=== PATIENT | female | born 1940 | race Caucasian/White ===

== ENCOUNTER 2018-10-26 10:25 | Observation (INO) | payer MEDICARE ==
[~2018-10-26] VITALS: Ht 160 cm; Wt 75.4 kg
--- NOTE | 2018-10-26 10:30 | NUR ---
PT TO ROOM VIA WHEELCHAIR.
[2018-10-26 11:27] LABS: URINE BILIRUBIN - DIPSTICK NEGATIVE (NEGATIVE); URINE BLOOD DIPSTICK NEGATIVE (NEGATIVE); URINE COLOR YELLOW; URINE GLUCOSE - DIPSTICK 100 mg/dL (NEGATIVE); URINE KETONE NEGATIVE (NEGATIVE); URINE LEUK ESTERASE TRACE (NEGATIVE); URINE NITRITE - DIPSTICK NEGATIVE (Negative); URINE PROTEIN - DIPSTICK NEGATIVE (NEG-TRACE); URINE SPECIFIC GRAVITY <=1.005; URINE UROBILINOGEN - DIPSTICK 0.2 E.U./dL (0.2)
[2018-10-26 11:36] LABS: HEMATOCRIT 42.3 % (37.0-47.0); HEMOGLOBIN 14.2 g/dl (12.0-16.0); IMMATURE GRANULOCYTES 0.4 % (0.0-5.0); MEAN CELL VOLUME 98.1 fL CALC (80.0-100.0); MEAN CORPUSCULAR HGB 32.9 pG CALC (26.0-32.0); MEAN CORPUSCULAR HGB CONC 33.6 g/L CALC (32.0-36.0); NEUT# 6.43 thou/uL (2.00-7.15); RED BLOOD COUNT 4.31 mill/uL (4.20-5.60); RED CELL DISTRI WIDTH 13.7 % (11.5-15.5)
--- NOTE | 2018-10-26 12:15 | NUR ---
PT WITH BLOOD DRAWN, IV ESTABLISHED, WAITS IN ROOM FOR RESULTS.
[2018-10-26 12:31] LABS: ALBUMIN 4.2 g/dL (3.2-5.0); ALKALINE PHOSPHATASE 77 u/l (38-126); ANION GAP 10 (6-22 (CALC)); BILIRUBIN, TOTAL 0.5 mg/dL (0.0-1.4); BUN 10 mg/dL (8-23); BUN/CREATININE RATIO 13 (12-20 (CALC)); CARBON DIOXIDE 31 mmol/l (22-30); CHLORIDE 106 mmol/l (95-108); CREATININE 0.7 mg/dL (0.5-1.0); GFR > 60 ML/MIN (>=60 (CALC)); GFR FOR AFR.AMER. > 60 ML/MIN (>=60 (CALC)); POTASSIUM 4.2 mmol/l (3.5-5.1); SGOT/AST 21 u/l (9-36); SODIUM 143 mmol/l (137-146); TOTAL PROTEIN 7.1 g/dL (6.3-8.2)
[2018-10-26 12:41] LABS: MYOGLOBIN 28 ng/mL (0 - 62)
--- NOTE | 2018-10-26 13:56 | NUR ---
PT AWARE OF PENDING ADMISSION, TELE MONITOR IN PLACE.
[2018-10-26] MEDS ORDERED: LEVOTHYROXIN100 MC1 PO (14:05)
[2018-10-26] MEDS ORDERED: METOPROLOL SUCC50 MG PO (14:06)
[2018-10-26] MEDS ORDERED: LISINOPRIL10 M1 PO (14:07)
[2018-10-26] MEDS ORDERED: SIMVASTATIN20 MG PO (14:07)
[2018-10-26] MEDS ORDERED: EC ASPIRIN325 MG PO (14:07)
[2018-10-26] MEDS ORDERED: VITAMIN B-12500 MCG PO (14:08)
[2018-10-26 14:20] VITALS: BP 138/59
--- NOTE | 2018-10-26 14:20 | NUR ---
PT ADMITTED TO ROOM 262 FROM ED VIA STRETCHER FOR WEAKNESS. PT TRANFERRED SELF FROM STRETCHER TO BED WITH SLOW STEADY GAIT. PT A&OX3 ABLE TO MAKE NEEDS KNOWN. PT DENIES SOB, CHEST PAIN OR DISTRESS AT THIS TIME. ASSESSMENT COMPLETED. T-96.3, HR- 56, B/P-138/59, SA02@100%RA, RESP.EVEN/UNLABORED, LS CLEAR THROUGHOUT. ABDOMEN DISTENDED, SOFT, NON-TENDER. REPORTS LAST BM 10-26-18. PT CONTINUES WITH 22 LH/SL FLUSHED WITHOUT DIFFICULTY, NO S/S OF REDNESS OR INFILTRATION AT THIS TIME. PT ORIENTED TO UNIT, ROOM AND CALL LIGHT SYSTEM. WILL MONITOR.
--- NOTE | 2018-10-26 14:29 | NUR ---
PT TAKEN TO ROOM 262 WITHOUT INCIDENT, REPORT WAS TO CHRIS.
--- NOTE | 2018-10-26 15:00 | NUR ---
PT SON AT BEDSIDE.
--- NOTE | 2018-10-26 15:16 | NUR ---
SNACK PROVIDED PER PT REQUEST.
--- NOTE | 2018-10-26 16:11 | NUR ---
PT RESTING IN BED WITH EYES CLOSED, OFFERS NO COMPLAINTS AT THIS TIME. CALL LIGHT IN REACH. WILL MONITOR.
[2018-10-26 19:40] VITALS: BP 102/62
--- NOTE | 2018-10-26 19:40 | NUR ---
PT RESTING IN BED, NO SIGNS OF DISTRESS NOTED, RESP EVEN AND UNLABORED. PT ALERT AND ORIENTED X3, DISCUSSED POC. IVF INFUSING, ASSESSMENT COMPLETED. CALL LIGHT IN REACH,CONTINUE TO MONITOR.
--- NOTE | 2018-10-26 21:27 | NUR ---
PT RESTING IN BED, DISCUSSED CLONIDINE, HELD DUE TO LOW BP AND HR, PT VERBALIZED UNDERSTANDING. STATES,"I DO NOT WANT TO TAKE SOMETHING THAT WILL LOWER MY BLOOD PRESSURE EVEN MORE." CALL LIGHT IN REACH,CONTINUE TO MONITOR.
[2018-10-27] VITALS (10 sets, daily range): BP systolic 99–151; BP diastolic 51–80
--- NOTE | 2018-10-27 | NUR ---
PT RESTING IN BED, NO SIGNS OF DISTRESS NOTED, RESP EVEN AND UNLABORED. CALL LIGHT IN REACH,CONTINUE TO MONITOR.
[2018-10-27 05:11] LABS: HEMATOCRIT 39.9 % (37.0-47.0); IMMATURE GRANULOCYTES 0.3 % (0.0-5.0); MEAN CELL VOLUME 100.3 fL CALC (80.0-100.0); MEAN CORPUSCULAR HGB 32.7 pG CALC (26.0-32.0); MEAN CORPUSCULAR HGB CONC 32.6 g/L CALC (32.0-36.0); NEUT# 4.58 thou/uL (2.00-7.15); RED BLOOD COUNT 3.98 mill/uL (4.20-5.60); RED CELL DISTRI WIDTH 13.6 % (11.5-15.5)
[2018-10-27 05:36] LABS: ALBUMIN 3.4 g/dL (3.2-5.0); ALKALINE PHOSPHATASE 61 u/l (38-126); ANION GAP 9 (6-22 (CALC)); BILIRUBIN, TOTAL 0.4 mg/dL (0.0-1.4); BUN 10 mg/dL (8-23); BUN/CREATININE RATIO 14 (12-20 (CALC)); CARBON DIOXIDE 28 mmol/l (22-30); CHLORIDE 108 mmol/l (95-108); CREATININE 0.7 mg/dL (0.5-1.0); GFR > 60 ML/MIN (>=60 (CALC)); GFR FOR AFR.AMER. > 60 ML/MIN (>=60 (CALC)); SGOT/AST 20 u/l (9-36); SODIUM 142 mmol/l (137-146); TOTAL PROTEIN 6.1 g/dL (6.3-8.2)
[2018-10-27 06:20] LABS: CHOLESTEROL HDL RATIO 3.1 (<4.4 (CALC))
[2018-10-27 06:51] LABS: TSH, 3RD GENERATION 5.98 uIU/mL (0.47 - 4.68)
--- NOTE | 2018-10-27 08:15 | NUR ---
PT SITTING IN CHAIR; SON IN ROOM TO VISIT; DENIES PAIN OR DISCOMFORT; IVF INFUSING WITHOUT DIFFICULTY IN #22 LH, NO REDNESS OR EDEMA NOTED; TELE MONITOR IN PLACE; PT C/O DIZZINESS AT TIMES, INSTRUCTED PT NOT TO GET OOB WITHOUT ASSISTANCE; PT VERBALIZE UNDERSTANDING OF SAME; CALL LEA WITHIN REACH; WILL CONTINUE TO MONITOR.
--- NOTE | 2018-10-27 08:47 | NUR ---
DR. OLVERA IN TO SEE PT; PLAN OF CARE DISCUSSED;
--- NOTE | 2018-10-27 10:00 | NUR ---
PT SITTING IN CHAIR; REQUESTING PRUNE JUICE; NO COMPLAINTS OR CONCERNS VOICED; IVF STOPPED PER MD ORDER; CALL LEA WITHIN REACH; WILL CONTINUE TO MONITOR.
--- NOTE | 2018-10-27 10:35 | NUR ---
REPORT RECEIVED FROM CEFERINO WARE AWAKE ALERT AND ORIENTED SITTING UP IN CHAIR, NO C/O DISCOMFORT, FAMILY VISITING AT THIS TIME, ALL NEEDS ADDRESSED, CALL LEA IN REACH.
--- NOTE | 2018-10-27 16:00 | NUR ---
RESTING IN BED, NO C/O DISCOMFORT, ORTHOSTATIC BP'S MEASURED AND RECORDED REQUESTED BY BROOKE (TRACK SURFACING MACHINE OPERATOR), ALL NEEDS ADDRESSED.
--- NOTE | 2018-10-27 17:06 | NUR ---
DR OLVERA ROUNDED AND DISCUSSED PLAN OF CARE TO D/C HOME IN AM, PT WANTED TO LEAVE TODAY BUT ADDITIONAL OBSERVATION NEEDED.
--- NOTE | 2018-10-27 19:32 | NUR ---
ASSESSMENT COMPLETED. IV SITE PATENT AND SL. DENIES NEEDS/PAIN. UPDATED ON POC.VOICES CONCERNS. ENCOURAGED TO CALL FOR ANY NEEDS. CALL LIGHT IS IN REACH.
--- NOTE | 2018-10-27 21:04 | NUR ---
SCHED MED GIVEN. CLONIDINE HELD D/T B/P. DENIES NEEDS AT THIS TIME. CALL LIGHT IS IN REACH. WILL CONTINUE TO MONITOR.
--- NOTE | 2018-10-27 22:04 | NUR ---
PT. REQUESTS SOMETHING TO HELP HER SLEEP. MEDICATED WITH ORDERED PRN RESTORIL; DENIES FURTHER NEEDS. CALL LIGHT IS IN REACH.
--- NOTE | 2018-10-27 23:37 | NUR ---
PT. AWAKENED FOR VS. B/P 151/80 AND MEDICATED WITH ORDERED PRN PO APRESOLINE; DENIES NEEDS/PAIN. CALL LIGHT IS IN REACH.
--- NOTE | 2018-10-28 04:00 | NUR ---
RESTING IN BED WITH EYES CLOSED; RESP. EVEN AND UNLABORED. CALL LIGHT IS IN REACH.
[2018-10-28 04:55] VITALS: BP 125/56
--- NOTE | 2018-10-28 05:31 | NUR ---
PT. DENIES NEEDS/PAIN. SCHED MED GIVEN.ENCOURAGED TO CALL FOR ANY NEEDS. CALL LIGHT IS IN REACH. CLONIDINE HELD DUE TO B/P. WILL CONTINUE TO MONITOR.
--- NOTE | 2018-10-28 08:00 | NUR ---
PT IS SITTING IN CHAIR. ASSESSMENT DONE. TELE IN PLACE. PT DENIES PAIN AT THIS TIME. PT IS A&O X3. RESPS EVEN AND UNLABORED. PT WAITING TO BE D/C TODAY. PT DENIES ANY OTHER NEEDS AT THIS TIME. CALL LIGHT IN REACH.
[2018-10-28 08:07] VITALS: BP 121/64
[2018-10-28 11:04] VITALS: BP 149/51
--- NOTE | 2018-10-28 12:11 | NUR ---
ASSISTED PT TO THE BATHROOM. PT DENIES ANY OTHER NEEDS AT THIS TIME. CALL LIGHT IN REACH.
[2018-10-28 14:20] VITALS: BP 168/78
--- NOTE | 2018-10-28 15:10 | NUR ---
Discharge instructions given. Patient verbalizes understanding of same. Discharged in stable condition via Wheelchair to Home with staff. All belongings sent with pt.
[2018-10-28 16:17] VITALS: BP 151/78
== END 2018-10-28 15:10 | disposition home or self-care (01) ==
LOC: ED 10:25 → ED-I 12:57 → ED 13:33 → MS2 13:34
PROVIDERS: Emergency Medicine; ADMIT Internal Medicine Geriatric Medicine; ATTEND Internal Medicine Geriatric Medicine
DX: I10 Essential (primary) hypertension (principal); F41.1 Generalized anxiety disorder; I25.10 Atherosclerotic heart disease of native coronary artery without angina pectoris; E03.9 Hypothyroidism, unspecified; M54.16 Radiculopathy, lumbar region

== ENCOUNTER 2018-11-01 09:37 | Emergency (ER) | payer MEDICARE ==
[~2018-11-01] VITALS: Ht 160 cm; Wt 80.0 kg
[~2018-11-01 09:37] MED LIST: EC ASPIRIN325 MG PO; LEVOTHYROXIN100 MC1 PO; LISINOPRIL10 M1 PO; METOPROLOL SUCC50 MG PO; SIMVASTATIN20 MG PO; VITAMIN B-12500 MCG PO
[2018-11-01 12:40] VITALS: BP 132/68
== END 2018-11-01 12:40 | disposition home or self-care (01) ==
LOC: ED 09:37
DX: I80.9 Phlebitis and thrombophlebitis of unspecified site (principal); I10 Essential (primary) hypertension

== ENCOUNTER 2019-06-06 06:29 | Observation (INO) | payer MEDICARE ==
[~2019-06-06] VITALS: Ht 160 cm; Wt 72.7 kg
[2019-06-06 07:16] LABS: HEMATOCRIT 44.9 % (37.0-47.0); HEMOGLOBIN 14.7 g/dl (12.0-16.0); IMMATURE GRANULOCYTES 0.5 % (0.0-5.0); MEAN CELL VOLUME 98.9 fL CALC (80.0-100.0); MEAN CORPUSCULAR HGB 32.4 pG CALC (26.0-32.0); MEAN CORPUSCULAR HGB CONC 32.7 g/dL CAL (32.0-36.0); NEUT# 9.17 thou/uL (2.00-7.15); RED BLOOD COUNT 4.54 mill/uL (4.20-5.60)
[2019-06-06 07:54] LABS: ALKALINE PHOSPHATASE 66 u/l (38-126); ANION GAP 10 (6-22 (CALC)); BILIRUBIN, TOTAL 0.5 mg/dL (0.0-1.4); BUN 17 mg/dL (8-23); BUN/CREATININE RATIO 21 (12-20 (CALC)); CARBON DIOXIDE 30 mmol/l (22-30); CHLORIDE 104 mmol/l (95-108); CREATININE 0.8 mg/dL (0.5-1.0); GFR > 60 ML/MIN (>=60 (CALC)); GFR FOR AFR.AMER. > 60 ML/MIN (>=60 (CALC)); POTASSIUM 3.7 mmol/l (3.5-5.1); SGOT/AST 26 u/l (9-36); SODIUM 141 mmol/l (137-146); TOTAL PROTEIN 7.2 g/dL (6.3-8.2)
[2019-06-06 08:06] LABS: MYOGLOBIN 35 ng/mL (0 - 62)
[2019-06-06 08:19] LABS: URINE BILIRUBIN - DIPSTICK NEGATIVE (NEGATIVE); URINE BLOOD DIPSTICK NEGATIVE (NEGATIVE); URINE COLOR YELLOW; URINE GLUCOSE - DIPSTICK NEGATIVE (NEGATIVE); URINE KETONE NEGATIVE (NEGATIVE); URINE LEUK ESTERASE NEGATIVE (NEGATIVE); URINE NITRITE - DIPSTICK NEGATIVE (Negative); URINE PH 6.5 (4.5-8.0); URINE PROTEIN - DIPSTICK NEGATIVE (NEG-TRACE); URINE SPECIFIC GRAVITY 1.015; URINE UROBILINOGEN - DIPSTICK 0.2 E.U./dL (0.2)
[2019-06-06 10:15] VITALS: BP 136/59
[2019-06-06 15:24] VITALS: BP 110/55
[2019-06-06 20:05] VITALS: BP 128/56
[2019-06-06 23:30] VITALS: BP 156/75
[2019-06-07 03:10] VITALS: BP 149/72
[2019-06-07 04:52] LABS: HEMATOCRIT 39.6 % (37.0-47.0); HEMOGLOBIN 12.8 g/dl (12.0-16.0); MEAN CELL VOLUME 99.5 fL CALC (80.0-100.0); MEAN CORPUSCULAR HGB 32.2 pG CALC (26.0-32.0); MEAN CORPUSCULAR HGB CONC 32.3 g/dL CAL (32.0-36.0); RED BLOOD COUNT 3.98 mill/uL (4.20-5.60)
[2019-06-07 05:08] LABS: ANION GAP 7 (6-22 (CALC)); BUN 16 mg/dL (8-23); BUN/CREATININE RATIO 21 (12-20 (CALC)); CARBON DIOXIDE 30 mmol/l (22-30); CHLORIDE 107 mmol/l (95-108); CREATININE 0.8 mg/dL (0.5-1.0); GFR > 60 ML/MIN (>=60 (CALC)); GFR FOR AFR.AMER. > 60 ML/MIN (>=60 (CALC)); MAGNESIUM 1.9 mg/dL (1.6-2.3); POTASSIUM 3.8 mmol/l (3.5-5.1); SODIUM 140 mmol/l (137-146)
[2019-06-07 10:10] VITALS: BP 161/58
[2019-06-07 12:13] VITALS: BP 163/77
== END 2019-06-07 14:51 | disposition home or self-care (01) ==
LOC: ED 06:29 → ED-I 09:06 → ED 09:18 → ED-I 09:19 → MS2 09:19
PROVIDERS: Family Medicine; Nurse Practitioner Family; ADMIT Internal Medicine; ATTEND Internal Medicine
DX: I95.2 Hypotension due to drugs (principal); T46.5X5A Adverse effect of other antihypertensive drugs, initial encounter; R00.1 Bradycardia, unspecified; I10 Essential (primary) hypertension; E03.9 Hypothyroidism, unspecified; G62.9 Polyneuropathy, unspecified; E78.5 Hyperlipidemia, unspecified; Z87.891 Personal history of nicotine dependence
CPT/HCPCS: G0378

== ENCOUNTER 2020-06-09 | Emergency (ER) | payer MEDICARE ==
[2020-06-09] MEDS ORDERED: FLOXIN OTIC0.3 % AD (07:45)
[2020-06-09] MEDS ORDERED: ZPAK PO (07:45)
[2020-06-09] MEDS ORDERED: MEDDOSEPAK PO (07:45)
== END 2020-06-09 07:52 | disposition home or self-care (01) ==
DX: B00.9 Herpesviral infection, unspecified (principal); H66.91 Otitis media, unspecified, right ear; T78.40XA Allergy, unspecified, initial encounter; I10 Essential (primary) hypertension; G62.9 Polyneuropathy, unspecified; X58.XXXA Exposure to other specified factors, initial encounter

== ENCOUNTER 2020-08-07 21:42 | Emergency (ER) | payer MEDICARE ==
[~2020-08-07] VITALS: Ht 160 cm; Wt 67.2 kg
[~2020-08-07 21:42] MED LIST changes: +FLOXIN OTIC0.3 % AD; +MEDDOSEPAK PO; +ZPAK PO
[2020-08-07 21:45] VITALS: BP 162/69
== END 2020-08-07 22:30 | disposition left against medical advice (07) ==
LOC: ED 21:42
DX: S00.83XA Contusion of other part of head, initial encounter (principal); S16.1XXA Strain of muscle, fascia and tendon at neck level, initial encounter; S00.31XA Abrasion of nose, initial encounter; S00.33XA Contusion of nose, initial encounter; M25.561 Pain in right knee; I10 Essential (primary) hypertension; G62.9 Polyneuropathy, unspecified; W01.0XXA Fall on same level from slipping, tripping and stumbling without subsequent striking against object, initial encounter; Y92.007 Garden or yard of unspecified non-institutional (private) residence as the place of occurrence of the external cause; Z91.19 Patient's noncompliance with other medical treatment and regimen

== ENCOUNTER 2021-09-13 11:57 | Observation (INO) | payer MEDICARE ==
[~2021-09-13] VITALS: Ht 160 cm; Wt 70.0 kg
--- NOTE | 2021-09-13 12:05 | NUR ---
PATIENT TO ROOM VIA WHEELCHAIR, EKG OBTAINED.
[2021-09-13] MEDS ORDERED: NIFEDIPINE10 M1 PO (12:08)
[2021-09-13] MEDS ORDERED: ASPIRIN81 MG PO (12:08)
[2021-09-13] MEDS ORDERED: CILOSTAZOL50 MG PO (12:09)
[2021-09-13] MEDS ORDERED: MULTI VIT PO (12:09)
[2021-09-13 12:16] LABS: HEMATOCRIT 45.6 % (37.0-47.0); HEMOGLOBIN 14.5 g/dl (12.0-16.0); MEAN CELL VOLUME 102.2 fL CALC (80.0-100.0); MEAN CORPUSCULAR HGB 32.5 pG CALC (26.0-32.0); MEAN CORPUSCULAR HGB CONC 31.8 g/dL CAL (32.0-36.0); NEUT# 5.04 thou/uL (2.00-7.15); RED BLOOD COUNT 4.46 mill/uL (4.20-5.60); RED CELL DISTRI WIDTH 13.4 % (11.5-15.5)
[2021-09-13 12:30] LABS: ALBUMIN 4.4 g/dL (3.2-5.0); ALKALINE PHOSPHATASE 95 u/l (38-126); BILIRUBIN, TOTAL 0.4 mg/dL (0.0-1.4); BUN 11 mg/dL (8-23); BUN/CREATININE RATIO 13 (12-20 (CALC)); CHLORIDE 104 mmol/l (95-108); CREATININE 0.8 mg/dL (0.5-1.0); GFR FOR AFR.AMER. > 60 ML/MIN (>=60 (CALC)); GFR OTHER RACES > 60 ML/MIN (>=60 (CALC)); POTASSIUM 3.8 mmol/l (3.5-5.1); SGOT/AST 27 u/l (9-36); SODIUM 138 mmol/l (137-146); TOTAL PROTEIN 7.9 g/dL (6.3-8.2)
[2021-09-13 12:38] LABS: ANION GAP 15 (6-22 (CALC)); CARBON DIOXIDE 23 mmol/l (22-30)
--- NOTE | 2021-09-13 13:00 | NUR ---
Reassessment of patient completed. No distress noted.
--- NOTE | 2021-09-13 14:00 | NUR ---
Reassessment of patient completed. No distress noted.
[2021-09-13] MEDS ORDERED: PLAVIX75 MG PO (14:09)
--- NOTE | 2021-09-13 14:20 | NUR ---
PT BROUGHT TO MED SURG 278. REPORT GIVEN AT [facility] TO HUMANITIES AND LANGUAGES PROFESSOR
--- NOTE | 2021-09-13 14:28 | NUR ---
RECEIVED PATIENT FROM ED VIA @ [id number]. YAMILKA REPORT RECEIVED FROM ED RN. PATIENT IS A&OX4. PATIENT ADMITED FOR OBSERVATION. PATIENT IS IN ROOM AIR. PATIENT IS ABLE TO MAKE NEEDS KNOWN AND DENIES ANY DISCOMFORT OR PAIN AT THIS TIME. PATIENT IN RESTING IN BED IN HIGH SEMI-FOWLERS POSITION. PATIENT ORIENTED TO ROOM, BED IN LOWEST POSITION. CALL LIGHT AND BEDSIDE TABLE IN LOWEST POSITION.
[2021-09-13 15:20] VITALS: BP 143/71
[2021-09-13 19:21] VITALS: BP 128/55
--- NOTE | 2021-09-13 19:39 | NUR ---
PATIENT AOX3. NO DISTRESS NOTED. PATIENT SITTING UP IN BED READING. NO COMPLAINTS AT THIS TIME. CALL LEA WITHIN REACH. FALL PRECAUTIONS IN PLACE.
[2021-09-14 00:20] VITALS: BP 120/62
[2021-09-14 04:39] VITALS: BP 118/62
[2021-09-14 05:20] LABS: HEMOGLOBIN 12.7 g/dl (12.0-16.0); MEAN CELL VOLUME 99.5 fL CALC (80.0-100.0); MEAN CORPUSCULAR HGB 33.2 pG CALC (26.0-32.0); MEAN CORPUSCULAR HGB CONC 33.3 g/dL CAL (32.0-36.0); RED BLOOD COUNT 3.83 mill/uL (4.20-5.60); RED CELL DISTRI WIDTH 13.4 % (11.5-15.5)
[2021-09-14 05:34] LABS: HEMATOCRIT 38.1 % (37.0-47.0)
[2021-09-14 05:40] LABS: BUN 10 mg/dL (8-23); BUN/CREATININE RATIO 13 (12-20 (CALC)); CALCULATED LDLCHOLESTEROL 67 mg/dL (62-129 (CALC)); CHLORIDE 107 mmol/l (95-108); CHOLESTEROL HDL RATIO 2.8 (<4.4 (CALC)); CREATININE 0.8 mg/dL (0.5-1.0); GFR FOR AFR.AMER. > 60 ML/MIN (>=60 (CALC)); GFR OTHER RACES > 60 ML/MIN (>=60 (CALC)); HDL CHOLESTEROL 49 mg/dL (>=40); MAGNESIUM 2.1 mg/dL (1.6-2.3); SODIUM 139 mmol/l (137-146); TOTAL CHOLESTEROL 136 mg/dl (0-199); TOTAL TRIGLYCERIDES 99 mg/dl (30-149); VLDL CHOLESTROL 20 mg/dl (0-48 (CALC))
[2021-09-14 05:44] LABS: ANION GAP 8 (6-22 (CALC)); CARBON DIOXIDE 28 mmol/l (22-30)
[2021-09-14 06:41] VITALS: BP 103/53
--- NOTE | 2021-09-14 08:00 | NUR ---
GOT REPORT FROM CIGAR PACKING EXAMINER NURSE. PATIENT ASSESSED. AOX3. PATIENT EATING BREAKFAST AT THIS TIME. NO COMPLAINTS. STATES SHE FEELS LIKE SHE HAS INDIGESTION. MEDICATION GIVEN. CALL LIGHT AND BEDSIDE TABLE WITHIN REACH. ADVISED TO CALL IF SHE NEEDS ANYTHING. PATIENT VERBALIZED UNDERSTANDING.
[2021-09-14 10:10] VITALS: BP 133/64
[2021-09-14] MEDS ORDERED: PROTONIX40 M2 PO (11:55)
[2021-09-14] MEDS ORDERED: MECLIZINE25 MG PO (13:04)
--- NOTE | 2021-09-14 13:05 | NUR ---
Discharge instructions given. Patient verbalizes understanding of same. Discharged in stable condition via Wheelchair to Home with *Other. All belongings sent with pt.
== END 2021-09-14 13:05 | disposition home or self-care (01) ==
LOC: ED 11:57 → ED-I 13:25 → ED 13:46 → MS2 13:47
PROVIDERS: Family Medicine; ADMIT Hospitalist; ATTEND Hospitalist
DX: R07.89 Other chest pain (principal); K21.9 Gastro-esophageal reflux disease without esophagitis; I10 Essential (primary) hypertension; E78.5 Hyperlipidemia, unspecified; I70.213 Atherosclerosis of native arteries of extremities with intermittent claudication, bilateral legs; E03.9 Hypothyroidism, unspecified; J30.2 Other seasonal allergic rhinitis; G62.9 Polyneuropathy, unspecified; Z86.718 Personal history of other venous thrombosis and embolism; Z95.820 Peripheral vascular angioplasty status with implants and grafts; Z87.891 Personal history of nicotine dependence; Z20.822 Contact with and (suspected) exposure to COVID-19
CPT/HCPCS: J1650

== ENCOUNTER 2022-07-02 01:35 | Emergency (ER) | payer MEDICARE ==
[~2022-07-02] VITALS: Ht 160 cm; Wt 68.0 kg
[~2022-07-02 01:35] MED LIST changes: +ASPIRIN81 MG PO; +CILOSTAZOL50 MG PO; +MECLIZINE25 MG PO; +MULTI VIT PO; +NIFEDIPINE10 M1 PO; +PLAVIX75 MG PO; +PROTONIX40 M2 PO
[2022-07-02 01:40] VITALS: BP 160/83
[2022-07-02 01:45] VITALS: BP 148/76
[2022-07-02 02:00] VITALS: BP 127/65
[2022-07-02 02:19] LABS: BASO% 0.3 % (0-3); EOS% 2.6 % (0-8); HEMOGLOBIN 14.3 g/dl (12.0-16.0); IMMATURE GRANULOCYTES 0.4 % (0.0-5.0); LYMPH% 22.3 % (15-41); MEAN CELL VOLUME 99.3 fL CALC (80.0-100.0); MEAN CORPUSCULAR HGB 32.1 pG CALC (26.0-32.0); MEAN CORPUSCULAR HGB CONC 32.3 g/dL CAL (32.0-36.0); MONO% 10.1 % (2-13); NEUT# 4.45 thou/uL (2.00-7.15); NEUT% 64.3 % (42-76); RED BLOOD COUNT 4.46 mill/uL (4.20-5.60); RED CELL DISTRI WIDTH 13.1 % (11.5-15.5)
[2022-07-02 02:20] LABS: HEMATOCRIT 44.3 % (37.0-47.0)
[2022-07-02 02:45] LABS: ALBUMIN 4.4 g/dL (3.2-5.0); ALKALINE PHOSPHATASE 80 u/l (38-126); ANION GAP 10 (6-22 (CALC)); BILIRUBIN, TOTAL 0.4 mg/dL (0.02-1.3); BUN 17 mg/dL (8-23); BUN/CREATININE RATIO 19 (12-20 (CALC)); CARBON DIOXIDE 27 mmol/l (22-30); CHLORIDE 108 mmol/l (95-108); CREATININE 0.9 mg/dL (0.5-1.0); GFR FOR AFR.AMER. > 60 ML/MIN (>=60 (CALC)); GFR OTHER RACES 60 ML/MIN (>=60 (CALC)); SGOT/AST 37 u/l (9-36); SODIUM 141 mmol/l (137-146); TOTAL PROTEIN 7.6 g/dL (6.3-8.2)
[2022-07-02 03:05] LABS: URINE BILIRUBIN - DIPSTICK NEGATIVE (NEGATIVE); URINE BLOOD DIPSTICK TRACE-INTACT (NEGATIVE); URINE COLOR YELLOW; URINE GLUCOSE - DIPSTICK NEGATIVE (NEGATIVE); URINE KETONE NEGATIVE (NEGATIVE); URINE LEUK ESTERASE NEGATIVE (NEGATIVE); URINE PH 6.5 (4.5-8.0); URINE PROTEIN - DIPSTICK NEGATIVE (NEG-TRACE); URINE SPECIFIC GRAVITY <=1.005; URINE UROBILINOGEN - DIPSTICK 0.2 E.U./dL (0.2)
[2022-07-02 03:06] LABS: URINE NITRITE - DIPSTICK NEGATIVE (Negative)
[2022-07-02] MEDS ORDERED: BACLOFEN20 MG PO (04:01)
[2022-07-02 04:03] VITALS: BP 127/65
== END 2022-07-02 04:35 | disposition home or self-care (01) ==
LOC: ED 01:35
PROVIDERS: Emergency Medicine
DX: M47.816 Spondylosis without myelopathy or radiculopathy, lumbar region (principal); I10 Essential (primary) hypertension; G62.9 Polyneuropathy, unspecified; Z86.718 Personal history of other venous thrombosis and embolism

== ENCOUNTER 2022-11-25 12:28 | Observation (INO) | payer MEDICARE ==
[2022-11-25] VITALS (11 sets, daily range): BP systolic 112–160; BP diastolic 46–70
[~2022-11-25] VITALS: Ht 160 cm; Wt 70.4 kg
[~2022-11-25 12:28] MED LIST changes: +BACLOFEN20 MG PO
[2022-11-25 12:51] LABS: BASO% 0.2 % (0-3); EOS% 1.4 % (0-8); HEMATOCRIT 43.1 % (37.0-47.0); HEMOGLOBIN 13.7 g/dl (12.0-16.0); IMMATURE GRANULOCYTES 0.1 % (0.0-5.0); MEAN CELL VOLUME 103.4 fL CALC (80.0-100.0); MEAN CORPUSCULAR HGB 32.9 pG CALC (26.0-32.0); MEAN CORPUSCULAR HGB CONC 31.8 g/dL CAL (32.0-36.0); MONO% 9.2 % (2-13); NEUT# 5.48 thou/uL (2.00-7.15); NEUT% 64.1 % (42-76); RED BLOOD COUNT 4.17 mill/uL (4.20-5.60)
[2022-11-25 13:07] LABS: ALBUMIN 4.5 g/dL (3.2-5.0); ALKALINE PHOSPHATASE 102 u/l (38-126); ANION GAP 13 (6-22 (CALC)); BILIRUBIN, TOTAL 0.5 mg/dL (0.02-1.3); BUN 15 mg/dL (8-23); BUN/CREATININE RATIO 19 (12-20 (CALC)); CARBON DIOXIDE 27 mmol/l (22-30); CHLORIDE 102 mmol/l (95-108); CREATININE 0.8 mg/dL (0.5-1.0); GFR FOR AFR.AMER. > 60 ML/MIN (>=60 (CALC)); GFR OTHER RACES > 60 ML/MIN (>=60 (CALC)); SGOT/AST 32 u/l (9-36); SODIUM 139 mmol/l (137-146); TOTAL PROTEIN 8.8 g/dL (6.3-8.2)
[2022-11-25] MEDS ORDERED: IRON28 M1 PO (13:13)
[2022-11-25] MEDS ORDERED: B-122000 MCG PO (13:14)
[2022-11-25] MEDS ORDERED: [UNRECOGNIZED DRUG - REMARK] PO (13:14)
[2022-11-26 04:24] VITALS: BP 110/54
[2022-11-26 06:10] LABS: BASO% 0.1 % (0-3); EOS% 2.3 % (0-8); HEMATOCRIT 39.2 % (37.0-47.0); HEMOGLOBIN 12.6 g/dl (12.0-16.0); IMMATURE GRANULOCYTES 0.5 % (0.0-5.0); MEAN CELL VOLUME 102.6 fL CALC (80.0-100.0); MEAN CORPUSCULAR HGB CONC 32.1 g/dL CAL (32.0-36.0); MONO% 9.7 % (2-13); NEUT# 5.49 thou/uL (2.00-7.15); NEUT% 65.4 % (42-76); RED BLOOD COUNT 3.82 mill/uL (4.20-5.60)
[2022-11-26 06:22] LABS: ALKALINE PHOSPHATASE 87 u/l (38-126); ANION GAP 7 (6-22 (CALC)); BILIRUBIN, TOTAL 0.4 mg/dL (0.02-1.3); BUN 15 mg/dL (8-23); BUN/CREATININE RATIO 17 (12-20 (CALC)); CALCULATED LDLCHOLESTEROL 85 mg/dL (62-129 (CALC)); CARBON DIOXIDE 29 mmol/l (22-30); CHLORIDE 106 mmol/l (95-108); CHOLESTEROL HDL RATIO 3.7 (<4.4 (CALC)); CREATININE 0.9 mg/dL (0.5-1.0); GFR FOR AFR.AMER. > 60 ML/MIN (>=60 (CALC)); GFR OTHER RACES 60 ML/MIN (>=60 (CALC)); HDL CHOLESTEROL 37 mg/dL (39.0-59.0); MAGNESIUM 2.1 mg/dL (1.6-2.3); POTASSIUM 4.2 mmol/l (3.5-5.1); SGOT/AST 25 u/l (9-36); SODIUM 138 mmol/l (137-146); TOTAL CHOLESTEROL 136 mg/dl (0-199); TOTAL TRIGLYCERIDES 71 mg/dl (0-149); VLDL CHOLESTROL 14 mg/dl (0-48 (CALC))
[2022-11-26 06:25] LABS: ALBUMIN 3.3 g/dL (3.2-5.0); TOTAL PROTEIN 6.3 g/dL (6.3-8.2)
[2022-11-26 07:22] VITALS: BP 102/51
[2022-11-26 10:39] VITALS: BP 125/46
[2022-11-26 10:42] VITALS: BP 132/83
[2022-11-26 10:49] VITALS: BP 125/46
[2022-11-26] MEDS ORDERED: PROTONIX40 M2 PO (12:18)
== END 2022-11-26 12:57 | disposition home or self-care (01) ==
LOC: ED 12:28 → ED-I 13:50 → ED 14:35 → MS2 14:36
PROVIDERS: Family Medicine; Nurse Practitioner Family; ADMIT Student in an Organized Health Care Education/Training Program; ATTEND Student in an Organized Health Care Education/Training Program
DX: R07.9 Chest pain, unspecified (principal); K21.9 Gastro-esophageal reflux disease without esophagitis; M35.3 Polymyalgia rheumatica; I10 Essential (primary) hypertension; E78.5 Hyperlipidemia, unspecified; G62.9 Polyneuropathy, unspecified; I73.9 Peripheral vascular disease, unspecified; E03.9 Hypothyroidism, unspecified; F41.9 Anxiety disorder, unspecified; Z86.718 Personal history of other venous thrombosis and embolism; Z95.820 Peripheral vascular angioplasty status with implants and grafts; Z87.891 Personal history of nicotine dependence

== ENCOUNTER 2023-03-01 09:59 | Emergency (ER) | payer MEDICARE ==
[~2023-03-01] VITALS: Ht 160 cm; Wt 70.0 kg
[~2023-03-01 09:59] MED LIST changes: +B-122000 MCG PO; +BAYER ASPIRIN E81 MG PO; +CARAFATE1 GM PO; +IRON28 M1 PO; +[UNRECOGNIZED DRUG - REMARK] PO
[2023-03-01 10:11] VITALS: BP 147/68
[2023-03-01 10:32] VITALS: BP 155/66
== END 2023-03-01 11:37 | disposition home or self-care (01) ==
LOC: ED 09:59
PROC: 0HQLXZZ Repair Left Lower Leg Skin, External Approach (ICD-10-PCS; principal; 2023-03-01)
DX: S81.812A Laceration without foreign body, left lower leg, initial encounter (principal); I10 Essential (primary) hypertension; G62.9 Polyneuropathy, unspecified; X58.XXXA Exposure to other specified factors, initial encounter; Z86.718 Personal history of other venous thrombosis and embolism; Z95.820 Peripheral vascular angioplasty status with implants and grafts

== ENCOUNTER 2024-04-17 17:22 | Emergency (ER) | payer MEDICARE ==
[~2024-04-17] VITALS: Ht 160 cm; Wt 71.0 kg
[2024-04-17 17:26] VITALS: BP 135/68
[2024-04-17 17:30] VITALS: BP 140/63
[2024-04-17] MEDS ORDERED: Diph, Acellular Pertussis, Tet 0.5 ML/VIAL (Tdap) SDV IM ONE (17:30)
[2024-04-17 18:27] LABS: BASO% 0.1 % (0-3); EOS% 1.4 % (0-8); HEMATOCRIT 41.8 % (37.0-47.0); HEMOGLOBIN 13.3 g/dl (12.0-16.0); IMMATURE GRANULOCYTES 0.1 % (0.0-5.0); LYMPH% 17.1 % (15-41); MEAN CELL VOLUME 103.5 fL CALC (80.0-100.0); MEAN CORPUSCULAR HGB 32.9 pG CALC (26.0-32.0); MEAN CORPUSCULAR HGB CONC 31.8 g/dL CAL (32.0-36.0); MONO% 8.8 % (2-13); NEUT# 6.11 thou/uL (2.00-7.15); NEUT% 72.5 % (42-76); RED BLOOD COUNT 4.04 mill/uL (4.20-5.60); RED CELL DISTRI WIDTH 12.6 % (11.5-15.5)
[2024-04-17 18:33] LABS: ALKALINE PHOSPHATASE 79 u/l (38-126); ANION GAP 11 (6-22 (CALC)); BILIRUBIN, TOTAL 0.5 mg/dL (0.02-1.3); BUN 14 mg/dL (8-23); BUN/CREATININE RATIO 17 (12-20 (CALC)); CARBON DIOXIDE 29 mmol/l (22-30); CHLORIDE 104 mmol/l (95-108); CREATININE 0.8 mg/dL (0.5-1.0); ESTIMATED GFR 72 ML/MIN (>=90 (CALC)); POTASSIUM 3.6 mmol/l (3.5-5.1); SGOT/AST 30 u/l (9-36); SODIUM 141 mmol/l (137-146)
[2024-04-17 18:41] LABS: TOTAL PROTEIN 7.1 g/dL (6.3-8.2)
[2024-04-17] MEDS ORDERED: MOTRIN400 MG/TAB PO (18:47)
[2024-04-17] MEDS ORDERED: TRAMADOL HYDROC50 M1 PO (18:47)
[2024-04-17 18:49] VITALS: BP 140/63
== END 2024-04-17 19:00 | disposition home or self-care (01) ==
LOC: ED 17:22
PROVIDERS: Family Medicine
PROC: 2W3CX1Z Immobilization of Right Lower Arm using Splint (ICD-10-PCS; principal; 2024-04-17)
DX: S52.514A Nondisplaced fracture of right radial styloid process, initial encounter for closed fracture (principal); S22.42XA Multiple fractures of ribs, left side, initial encounter for closed fracture; S61.511A Laceration without foreign body of right wrist, initial encounter; I10 Essential (primary) hypertension; G62.9 Polyneuropathy, unspecified; W19.XXXA Unspecified fall, initial encounter; Y92.009 Unspecified place in unspecified non-institutional (private) residence as the place of occurrence of the external cause; Z87.891 Personal history of nicotine dependence
CPT/HCPCS: 90715

== ENCOUNTER 2024-05-31 23:21 | Emergency (ER) | payer MEDICARE ==
[~2024-05-31] VITALS: Ht 160 cm; Wt 70.3 kg
[~2024-05-31 23:21] MED LIST changes: +MOTRIN400 MG/TAB PO; +TRAMADOL HYDROC50 M1 PO
[2024-05-31 23:40] VITALS: BP 143/72
[2024-05-31 23:45] VITALS: BP 134/68
[2024-05-31] MEDS ORDERED: MORPHINE SULFATE 4 MG/ML VIAL IV ONE (23:50)
[2024-06-01] VITALS: BP 139/68
[2024-06-01 00:14] LABS: BASO% 0.1 % (0-3); EOS% 0.8 % (0-8); HEMATOCRIT 40.8 % (37.0-47.0); HEMOGLOBIN 13.5 g/dl (12.0-16.0); IMMATURE GRANULOCYTES 0.1 % (0.0-5.0); LYMPH% 15.2 % (15-41); MEAN CELL VOLUME 100.2 fL CALC (80.0-100.0); MEAN CORPUSCULAR HGB 33.2 pG CALC (26.0-32.0); MEAN CORPUSCULAR HGB CONC 33.1 g/dL CAL (32.0-36.0); MONO% 8.4 % (2-13); NEUT# 7.86 thou/uL (2.00-7.15); NEUT% 75.4 % (42-76); RED BLOOD COUNT 4.07 mill/uL (4.20-5.60); RED CELL DISTRI WIDTH 13.2 % (11.5-15.5)
[2024-06-01 00:31] LABS: ALBUMIN 4.4 g/dL (3.2-5.0); BILIRUBIN, TOTAL 0.7 mg/dL (0.02-1.3); CREATININE 0.9 mg/dL (0.5-1.0); POTASSIUM 4.1 mmol/l (3.5-5.1); TOTAL PROTEIN 7.7 g/dL (6.3-8.2)
[2024-06-01 01:35] VITALS: BP 153/71
[2024-06-01 01:46] VITALS: BP 141/69
[2024-06-01 02:01] VITALS: BP 141/60
[2024-06-01 02:16] VITALS: BP 148/66
[2024-06-01] MEDS ORDERED: IBUPROFEN200 MG PO (02:40)
[2024-06-01 02:55] LABS: URINE BILIRUBIN - DIPSTICK Negative (NEGATIVE); URINE BLOOD DIPSTICK Negative (NEGATIVE); URINE COLOR Yellow; URINE GLUCOSE - DIPSTICK Negative (NEGATIVE); URINE KETONE 15 mg/dL (NEGATIVE); URINE LEUK ESTERASE Negative (NEGATIVE); URINE NITRITE - DIPSTICK Negative (Negative); URINE PROTEIN - DIPSTICK Negative (NEG-TRACE); URINE SPECIFIC GRAVITY 1.015; URINE UROBILINOGEN - DIPSTICK 0.2 E.U./dL (0.2)
[2024-06-01 03:43] VITALS: BP 148/66
== END 2024-06-01 04:14 | disposition home or self-care (01) ==
LOC: ED 23:21
PROVIDERS: Emergency Medicine
DX: M47.816 Spondylosis without myelopathy or radiculopathy, lumbar region (principal); I10 Essential (primary) hypertension; E78.5 Hyperlipidemia, unspecified; G62.9 Polyneuropathy, unspecified; Z95.820 Peripheral vascular angioplasty status with implants and grafts; Z86.73 Personal history of transient ischemic attack (TIA), and cerebral infarction without residual deficits; Z87.891 Personal history of nicotine dependence